=== PATIENT | male | born 2000 ===

== ENCOUNTER → 2024-03-16 | Outpatient (CLI) | payer OTHER | END | disposition home or self-care (01) | LOC: LAB SHORT 18:39 → LAB 18:39 | DX: J02.8 Acute pharyngitis due to other specified organisms (principal) | CPT/HCPCS: 87081 ==

== ENCOUNTER → 2024-07-28 | Outpatient (CLI) | payer OTHER ==
[2024-07-28 17:43] LABS: Hemoglobin 15.6 g/dL (13.5-17.5); Mean Corpuscular HGB 29.7 pg (26.0-34.0); Mean Corpuscular HGB Conc 36.3 g/dL (31.5-36.5); Mean Corpuscular Volume 82 fL (80-100); Mean Platelet Volume 11.7 fL (9.1-12.4); Platelet Count 273 K/mm3 (150-400); RDW Coefficient Variation 11.8 % (11.7-14.2); RDW Standard Deviation 34.7 fL (35.1-46.3); Red Blood Cell Count 5.26 M/mm3 (4.30-5.90); White Blood Cell Count 5.15 K/mm3 (4.00-11.30)
[2024-07-28 17:59] LABS: Alanine Aminotransfer (ALT/SGP 30 U/L (12-78); Albumin, Blood 4.6 g/dL (3.4-5.0); Albumin/Globulin Ratio 1.4 (0.8-1.8); Alk Phos 52 U/L (50-136); Anion Gap 11 mmol/L (3-11); Aspartate Aminotrans (AST/SGOT 21 U/L (12-37); Bilirubin, Total 0.6 mg/dL (0.1-1.0); Blood Urea Nitrogen 16 mg/dL (8-24); CHOL/HDL RATIO 2.7; CO2, Blood 27 mmol/L (21-32); Calcium, Blood 9.3 mg/dL (8.5-10.1); Chloride, Blood 103 mmol/L (98-108); Cholesterol 179 mg/dL (50-200); Creatinine, Blood 1.14 mg/dL (0.60-1.20); Globulin, Blood 3.2 g/dL (2.2-4.0); Glomerular Filtration Rate 93 (60-); Glucose, Blood 90 mg/dL (70-99); HDL Cholesterol 67 mg/dL (>39); LDL/HDL RATIO 1.1; Low Density Lipoprotein Chol 71 mg/dL (0-110); Potassium, Blood 3.9 mmol/L (3.5-5.5); Sodium, Blood 137 mmol/L (136-145); Total Protein, Blood 7.8 g/dL (6.4-8.2); Triglycerides 207 mg/dL (30-140); Very Low Density Lipoprot Chol 41 mg/dL (6-28)
== END ==
LOC: LAB SHORT 16:18 → LAB 16:18
DX: F41.1 Generalized anxiety disorder (principal); F33.0 Major depressive disorder, recurrent, mild
CPT/HCPCS: 80053; 80061; 83036; 84443; 85027

== ENCOUNTER → 2024-11-11 | Outpatient (CLI) | payer BC, OTHER | LOC: LAB SHORT 16:20 → LAB 16:20 | DX: L98.9 Disorder of the skin and subcutaneous tissue, unspecified (principal) | CPT/HCPCS: 87070; 87077; 87147; 87186 ==

== ENCOUNTER → 2025-03-09 | Outpatient (CLI) | payer BC, OTHER ==
[2025-03-09 14:18] LABS: CHOL/HDL RATIO 2.5; Cholesterol 170 mg/dL (50-200); HDL Cholesterol 69 mg/dL (>39); LDL/HDL RATIO 1.3; Low Density Lipoprotein Chol 92 mg/dL (0-110); Triglycerides 44 mg/dL (30-140); Very Low Density Lipoprot Chol 8 mg/dL (6-28)
== END ==
LOC: LAB SHORT 09:49 → LAB 09:49
DX: F41.1 Generalized anxiety disorder (principal)
CPT/HCPCS: 80061